=== PATIENT | male | born 1935 | race Caucasian/White ===

== ENCOUNTER → 2016-09-21 | Outpatient (CLI) | payer MEDICARE ==
--- NOTE | 2016-09-21 22:38 | XR ---
EXAMINATION TYPE: XR skull limited DATE OF EXAM: 09/21/2016 4:20 PM COMPARISON: NONE HISTORY: 81-year-old male unspecified foreign body, MRI clearance TECHNIQUE: 2 views FINDINGS: No calvarial abnormality is seen. No retained metallic density is seen. IMPRESSION: Skull without any retained metallic density. Clear for MRI.
== END ==
LOC: RADXRMAIN 16:09
PROVIDERS: ATTEND Family Medicine
DX: H44.70 Unspecified retained (old) intraocular foreign body, nonmagnetic (principal)
CPT/HCPCS: 70250

== ENCOUNTER → 2016-09-24 | Outpatient (CLI) | payer MEDICARE ==
--- NOTE | 2016-09-24 13:29 | MR ---
EXAMINATION TYPE: MR brain wo con DATE OF EXAM: 09/24/2016 1:21 PM. COMPARISON: Previous study dated 10/21/2014. HISTORY: Diplopia and syncope. Technique: Multiplanar, multiecho imaging of the brain was obtained without intravenous contrast. FINDINGS: Midline structures are unremarkable. There is a normal craniocervical junction. The sella turcica appears normal. Echoplanar diffusion imaging is normal. The orbits appear normal. There is no intraconal or extraconal mass lesion. There is no evidence of a CP angle mass lesion. There is diffuse confluent and punctate periventricular white matter disease. The pulmonary lesions m ay have increased very slightly from the previous study. There is no mass effect, midline shift or in tracranial blood. IMPRESSION: 1. NO ACUTE INTRACRANIAL ABNORMALITY. 2. SLIGHT PROGRESSION OF THE PATIENT'S WHITE MATTER DISEASE, LIKELY ON THE BASIS SMALL VESSEL DISEASE AND CHRONIC ISCHEMIC CHANGE. 3. NO ORBITAL ABNORMALITY OR ABNORMALITY OF THE SELLA TURCICA.
== END | disposition home or self-care (01) ==
LOC: RADMRIMAIN 12:43
PROVIDERS: ATTEND Family Medicine
DX: R90.82 White matter disease, unspecified (principal)
CPT/HCPCS: 70551

== ENCOUNTER → 2016-09-30 | Outpatient (CLI) | payer MEDICARE ==
--- NOTE | 2016-09-30 14:49 | US ---
EXAMINATION TYPE: US carotid duplex BILAT DATE OF EXAM: 09/30/2016 2:12 PM COMPARISON: Ultrasound CLINICAL HISTORY: R55 syncope. Syncope and collapse, history of left endarterectomy EXAM MEASUREMENTS: RIGHT: Peak Systolic Velocity (PSV) cm/sec ----- Right CCA: 99.8 ----- Right ICA: 95.6 ----- Right ECA: 95.6 ICA/CCA ratio: 1.0 RIGHT: End Diastole cm/sec ----- Right CCA: 9.6 ----- Right ICA: 11.5 ----- Right ECA: 6.1 LEFT: Peak Systolic Velocity (PSV) cm/sec ----- Left CCA: 119.4 ----- Left ICA: 97.9 ----- Left ECA: 97.3 ICA/CCA ratio: 0.8 LEFT: End Diastole cm/sec ----- Left CCA: 18.9 ----- Left ICA: 15.5 ----- Left ECA: 0.0 VERTEBRALS (direction of flow): Right Vertebral: Antegrade Left Vertebral: Retrograde Bilateral intimal thickening, plaque: bilateral bulb, greater on right, elevated velocity: left bulb, no significant stenosis IMPRESSION: 1. Atheromatous plaquing without significant flow-limiting stenosis. Criteria for Assigning % of Stenosis / Diameter reduction (Estimation based on the indirect measurements of the internal carotid artery velocities (ICA PSV). 1. Normal (no stenosis)=ICA PSV < 125 cm/s: ratio < 2.0: ICA EDV<40 cm/s. 2. Less than 50% stenosis=ICA PSV < 125 cm/s: ratio < 2.0: ICA EDV<40 cm/s. 3. 50 to 69% stenosis=ICA PSV of 125 to 230 cm/s: ration 2.0 ? 4.0: ICA EDV 40-100 cm/s. 4. Greater than 70% stenosis to near occlusion= ICA PSV > 230 cm/s: ratio > 4.0: ICA EDV > 100 cm/s. 5. Near occlusion= ICA PSV velocities may be low or undetectable: variable ratio and ICA EDV. 6. Total occlusion=unable to detect flow.
--- NOTE | 2016-10-20 09:18 | EEG ---
DATE OF SERVICE: 09/30/2016 INDICATIONS FOR EXAMINATION: Syncope. AGE: 81Y DESCRIPTION OF THE PROCEDURE: This EEG was performed using a 21-channel digital electroencephalograph, following the international 10 to 20 system. DESCRIPTION OF THE RECORDING: From the beginning of the tracing, and with the patient's eyes closed, the background rhythm was mostly consisting of 7 Hz theta frequency in the posterior occipital leads. No obvious asymmetry is seen. Photic stimulation was performed with no driving response seen. No pathological waves were elicited. Rare movement artifacts are seen. Hyperventilation was not performed. The patient remains awake throughout the tracing. No epileptiform discharges were seen. His EKG lead showed a regular rate and rhythm. INTERPRETATION: This awake EEG is abnormal due to the presence of generalized slowing of the background rhythm, mostly in the theta range. This is consistent with mild encephalopathy. No epileptiform discharges were seen. The absence of epileptiform discharges does not rule out the diagnosis of epilepsy, therefore, clinical correlation is recommended.
== END | disposition home or self-care (01) ==
LOC: NEUROMAIN 12:56
PROVIDERS: ATTEND Family Medicine
DX: R55 Syncope and collapse (principal); I65.23 Occlusion and stenosis of bilateral carotid arteries
CPT/HCPCS: 93880; 95816

== ENCOUNTER 2016-10-28 12:27 | Day surgery (SDC) | payer MEDICARE ==
[2016-10-27 08:55] VITALS: BMI 32.3
[~2016-10-28 12:27] MED LIST: ceFAZolin 1,000 MG in SODIUM CHLORIDE 0.9% IRRIGATIO 250 ML IRRIGATION ONE; ceFAZolin 2 GM in SODIUM CHLORIDE 0.9% 100 ML IVPB ONE
[2016-10-28] MEDS: SODIUM CHLORIDE 0.9% 1,000 ML IV SCH (13:04)
[2016-10-28 13:07] LABS: Basophils # (A) 0.1 k/uL (0-0.2); Basophils % (A) 1 %; CH 29.6; CHCM 33.5; Eosinophils # (A) 0.3 k/uL (0-0.7); Eosinophils % (A) 3 %; HCT 56.4 % (39.0-53.0); HDW 2.73; HGB 18.6 gm/dL (13.0-17.5); Luc # (Auto) 0.13; Luc % (Auto) 1; Lymphocytes # (A) 1.6 k/uL (1.0-4.8); Lymphocytes % (A) 16 %; MCH 29.4 pg (25.0-35.0); Mean Platelet Volume 7.8; Monocytes # (A) 0.6 k/uL (0-1.0); Monocytes % (A) 6 %; Neutrophils # (A) 7.5 k/uL (1.3-7.7); Neutrophils % (A) 74 %; RBC 6.33 m/uL (4.30-5.90); RDW 14.3 % (11.5-15.5); WBC 10.2 k/uL (3.8-10.6); WBC (Perox) 10.25
[2016-10-28] MEDS ORDERED: IOHEXOL 350 MG/ML 50ML BOTTLE INJ ONE (15:43)
[2016-10-28] MEDS ORDERED: MIDAZOLAM 2 MG/2 ML VIAL IV ONE (16:04)
[2016-10-28] MEDS ORDERED: MIDAZOLAM 2 MG/2 ML VIAL ONE (16:04)
[2016-10-28] MEDS ORDERED: LIDOCAINE 1% INJ 10MG/ML (20 ML MDV) SQ ONE ×3 (16:08→16:21)
--- NOTE | 2016-10-28 16:09 | CE ---
DATE OF SERVICE: TILT TABLE TEST Twelve-lead ECG shows sinus rhythm with a prolonged MT interval of 310 ms, right bundle branch block pattern, normal ST segments. Tilt table test was performed. Patient has a history of syncope upon standing. 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 Baseline blood pressure 115/60 mmHg. Baseline heart rate 86 beats per minute. Patient was tilted upright at an angle of 70 degrees per protocol. There was no significant change in his heart rate. He had elevations in blood pressure but no hypertension. He was laid supine at the end of the procedure. IMPRESSION: 1. No evidence for neurocardiogenic syncope. 2. No evidence for dysautonomia. 3. Elevations in blood pressure noted. SUGGEST: Proceed with dual-chamber pacemaker implantation for bradycardia secondary to significant AV node disease in the absence of any reversible causes.
[2016-10-28] MEDS ORDERED: fentaNYL (PF) 50 MCG/ML 2 ML AMP ONE (16:14)
[2016-10-28] MEDS ORDERED: fentaNYL (PF) 50 MCG/ML 2 ML AMP IV ONE (16:17)
[2016-10-28] MEDS ORDERED: ACETAMINOPHEN TAB 325 MG TAB PO PRN (17:01)
--- NOTE | 2016-10-28 17:05 | P.PCN ---
Preoperative Diagnosis: Patient underwent EP procedure under conscious sedation/moderate sedation, monitoring of the level of consciousness and physiologic parameters including but not limited to vital signs and oxygenation. Patient tolerated the procedure well without any acute complications. Start time: 16;04 Stop time: 16;52 IV Versed and IV fentanyl given EC dual-chamber pacemaker implant procedure note dictated separately Postoperative Diagnosis: Procedure(s) Performed: Implants: Indications for Procedure: Operative Findings: Description of Procedure:
--- NOTE | 2016-10-28 18:01 | PCN ---
DATE OF PROCEDURE: DUAL-CHAMBER PACEMAKER IMPLANT The patient has a history of recurrent syncope with 2:1 heart block and advanced AV block with bradycardia, without any reversible cause. Patient was brought to the EP lab in a fasting state. Written informed consent was obtained prior to the procedure. The left shoulder area was prepped and draped as per protocol. Lidocaine 1% was used for local anesthesia. Please see my conscious sedation report separately. The left pectoral area was prepped and draped as per protocol. Lidocaine 1% was used for local anesthesia. A 4 cm incision was made parallel to the deltopectoral groove about 1.5 cm medial to it. The incision was carried down to the level of the pectoralis muscle. A subfascial pocket was made. Hemostasis was assured. The left axillary vein was accessed at 2 separate points under fluoroscopy, and via appropriate-sized introducer sheaths, 2 leads were positioned in the right heart. The atrial lead was a Biotronik Solia s60, reference #[id number], serial #[id number]. This lead was positioned in the low RV septum. Pacing threshold was 0.8 v at 0.4 ms, pacing impedance of 702 ohms. Ten-volt test was negative. R waves 10.9 mV. The atrial lead was a Solia s45, serial #[id number]. This was screwed in the right atrial appendage. P waves were 4.1 mV, pacing impedance 526 ohms, pacing threshold 0.8 v at 0.4 ms. Ten-volt test was negative. Both leads were secured to the underlying pectoralis fascia using 2 non-absorbable sutures. Pocket was irrigated with antibiotic solution. The leads were connected to the generator (Aluna 8 DR-T Biotronik), serial #[id number]. Leads and the generator were then placed in the subfascial pocket and the wound was closed in 3 layers and dressed per protocol. RESULT: Successful dual-chamber pacemaker implantation for symptomatic bradycardia without any reversible cause, secondary to AV node disease with intermittent advanced AV block. PLAN: IV antibiotics. Chest x-ray and pacemaker interrogation tomorrow. Discharge tomorrow and follow up in the office in 5 days.
--- NOTE | 2016-10-28 18:05 | LTR ---
October 28, 2016 RE: Jones Brasher Dear Johnny, I had the pleasure of seeing Jones Brasher in electrophysiology followup. As you know, Jones has had AV node disease which was initially asymptomatic, but recently he has had episodes of syncope with evidence of advanced AV block without any reversible cause. Therefore a dual-chamber pacemaker was implanted successfully, and hopefully this prevents syncope. He also underwent a tilt stable test, which did not show any evidence for neurocardiogenic syncope. Thank you for entrusting me with the care of your patient. Warm regards. Sincerely, KASIA DALTON MD
[2016-10-28] MEDS ORDERED: NON-FORMULARY DRUG (Turmeric Root Extract [Turmeric] 500 MG) PO SCH (21:00)
[2016-10-28] MEDS ORDERED: LISINOPRIL 20 MG TAB PO SCH (21:00)
[2016-10-28] MEDS ORDERED: ATORVASTATIN 40 MG TAB PO SCH (21:00)
[2016-10-28] MEDS ORDERED: DONEPEZIL 10 MG TAB PO SCH (21:00)
[2016-10-28] MEDS: ceFAZolin 2 GM in SODIUM CHLORIDE 0.9% 100 ML IVPB SCH (21:54)
[2016-10-29] MEDS: ceFAZolin 2 GM in SODIUM CHLORIDE 0.9% 100 ML IVPB SCH ×3 (04:00→15:01)
[2016-10-29] MEDS: SODIUM CHLORIDE 0.9% 1,000 ML IV SCH (06:45)
[2016-10-29 07:56] LABS: Anion Gap 10 mmol/L; Blood Urea Nitrogen 21 mg/dL (9-20); Calcium 8.9 mg/dL (8.4-10.2); Carbon Dioxide 23 mmol/L (22-30); Chloride 108 mmol/L (98-107); Glucose 93 mg/dL (74-99); Non-African American GFR(MDRD) 59 (>60 ml/min/1.73 sqM); Potassium 4.3 mmol/L (3.5-5.1); Sodium 141 mmol/L (137-145)
[2016-10-29] MEDS ORDERED: amLODIPine 5 MG TAB PO SCH (09:00)
[2016-10-29] MEDS ORDERED: MEMANTINE 10 MG TAB PO SCH (09:00)
[2016-10-29] MEDS ORDERED: CLOPIDOGREL 75 MG TAB PO SCH (09:00)
--- NOTE | 2016-10-29 09:25 | XR ---
EXAMINATION TYPE: XR chest 2V DATE OF EXAM: 10/29/2016 6:27 AM COMPARISON: 10/19/2014 INDICATION: Lead placement check TECHNIQUE: Single frontal view of the chest is obtained. FINDINGS: The heart size is normal. The pulmonary vasculature is normal. The lungs are clear. Electronic device overlies left chest. No pneumothorax is evident. Lead placement appears normal IMPRESSION: 1. No acute pulmonary process. 2. No pneumothorax post pacemaker placement.
--- NOTE | 2016-10-29 09:35 | PN ---
Mr. Jones Brasher is doing well post procedure. His pacemaker site has healed well. He has minimal soakage and minimal swelling. Breath sounds are normal. Heart sounds are normal. Lungs are clear to auscultation. Abdomen is soft, nontender. Extremities are warm, he has chronic edema on the left leg, no edema on the right leg. This is a chronic finding and he will follow with his primary care physician regarding this. His blood pressure is 126/70 mmHg, heart rate in the 80s. Head and neck examination is normal. IMPRESSION: 1. Recurrent dizzy spells associated with severe bradycardia secondary to advanced AV node disease. 2. Hypertension. SUGGEST: Complete IV antibiotics, the pacemaker interrogation is within normal limits. He may go home after completion of antibiotics. Follow up with Dr. Devon Ashraf in 5 days in the [facility].
[2016-10-29] MEDS ORDERED: CHOLECALCIFEROL 1,000 UNIT TAB PO SCH (12:00)
[2016-10-29 17:44] VITALS: BP 160/82; PULSE 92; RESP 18; TEMP 97.6
== END 2016-10-29 16:45 | disposition home or self-care (01) ==
LOC: CATHEP 12:27 → 3OBS 16:52 → CATHEP 10-29 16:45
PROVIDERS: ATTEND Internal Medicine Clinical Cardiac Electrophysiology
DX: I44.1 Atrioventricular block, second degree (principal); R00.1 Bradycardia, unspecified; I45.10 Unspecified right bundle-branch block; I10 Essential (primary) hypertension; E78.2 Mixed hyperlipidemia; Z87.891 Personal history of nicotine dependence; Z79.02 Long term (current) use of antithrombotics/antiplatelets; Z79.899 Other long term (current) drug therapy
CPT/HCPCS: 33208; 93660; 80048; 85025; 71020; 99152; 99153 ×2; C1785; C1898; J2250; J0690 ×3; J2001; J3010; Q9967

== ENCOUNTER → 2017-10-17 | Outpatient (CLI) | payer MEDICARE ==
--- NOTE | 2017-10-17 11:50 | US ---
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 EXAM MEASUREMENTS: RIGHT: Peak Systolic Velocity (PSV) cm/sec ----- Right CCA: 125.5 ----- Right ICA: 97.9 ----- Right ECA: 103.1 ICA/CCA ratio: 0.8 RIGHT: End Diastole cm/sec ----- Right CCA: 12.3 ----- Right ICA: 15.0 ----- Right ECA: 0.0 LEFT: Peak Systolic Velocity (PSV) cm/sec ----- Left CCA: 176.7 ----- Left ICA: 95.3 ----- Left ECA: 97.9 ICA/CCA ratio: 0.3 LEFT: End Diastole cm/sec ----- Left CCA: 30.8 ----- Left ICA: 25.4 ----- Left ECA: 0.0 VERTEBRALS (direction of flow): Right Vertebral: Antegrade Left Vertebral: Antegrade Rhythm: Normal There is persistent moderate plaque at right carotid bulb and slightly less prominent moderate plaque at left carotid bulb. Velocity measurements and ratios remain within normal limits in visualized por tion of both internal carotid arteries. Increased peak systolic velocity is redemonstrated. IMPRESSION: Moderate atherotic change bilaterally without hemodynamically significant stenosis seen i n either internal carotid artery.
== END | disposition home or self-care (01) ==
LOC: RADUSWWP 10:56
PROVIDERS: ATTEND Family Medicine
DX: I77.89 Other specified disorders of arteries and arterioles (principal)
CPT/HCPCS: 93880

== ENCOUNTER → 2020-10-21 | Outpatient (CLI) | payer MEDICARE ==
[2020-10-21 23:19] LABS: HGB 18.3 g/dL (13.0-17.0); MCHC 31.6 g/dL (32.0-37.0); MCV 91.9 fL (80.0-97.0); Mean Platelet Volume 11.3 fL (9.5-12.2); Platelet Count 191 X 10*3/uL (140-440); RBC 6.31 X 10*6/uL (4.40-5.60); RDW 13.9 % (11.5-14.5); WBC 10.33 X 10*3/uL (4.50-10.00)
[2020-10-22 04:18] LABS: African American GFR (CKD) 52.4 (60.0-200.0); Albumin 4.6 g/dL (3.80-4.90); Albumin/Globulin Ratio 2.19 (1.60-3.17); Anion Gap 10.9 mmol/L (4.00-12.00); BUN/Creat Ratio 12.86 Ratio (12.00-20.00); Calcium 9.3 mg/dL (8.7-10.3); Carbon Dioxide 26.1 mmol/L (21.6-31.8); Globulin 2.1 g/dL (1.6-3.3); Non-African American GFR(CKD) 45.2 (60.0-200.0); Potassium 4.3 mmol/L (3.5-5.5); Total Bilirubin 0.5 mg/dL (0.3-1.2); Total Protein 6.7 g/dL (6.2-8.2)
== END | disposition home or self-care (01) ==
LOC: LABWHC1 16:01
PROVIDERS: ATTEND Nurse Practitioner Adult Health
DX: I48.0 Paroxysmal atrial fibrillation (principal)
CPT/HCPCS: 36415; 80053; 84443; 85027

== ENCOUNTER 2021-03-06 06:32 | Observation (INO) | payer MEDICARE ==
[2021-03-06] MEDS ORDERED: SODIUM CHLORIDE 0.9% 1,000 ML IV ONE (06:53)
[2021-03-06 06:59] LABS: Glucose,Whole Blood 108 mg/dL (75-99)
--- NOTE | 2021-03-06 07:18 | ED ---
General Adult HPI - General Chief complaint: Fall Stated complaint: Fall, head pain, confusion Time Seen by Provider: 03/06/21 07:07 Source: patient, family Mode of arrival: ambulatory Limitations: no limitations - History of Present Illness Initial comments: Dictation was produced using [employer] dictation software. please excuse any grammatical, word or spelling errors. Chief Complaint: 85-year-old male to the emergency department for alleged fall History of Present Illness: To 85-year-old male who lives emergency [facility] in the independent portion of the facility. History of present illness was obtained by daughter who is at the bedside. According to daughter patient had an unwitnessed fall or unwitnessed event of head injury. Patient went to the staff at the [facility] facility told him that he fell. Patient has history of dementia. Daughter reports that patient's history had changed 5 times which is typical of patient to change the story. Daughter at bedside reports that at the bedside he is appearing baseline. Supposedly [facility] had lost electricity and these types of events usually lead to patient having a dementia exacerbation. Patient has no complaints at this time. Patient complained at some point to daughter and [facility] staff that he has pain on the right side of his head. Daughter notices a little small bump over his right forehead area. Some clear patient was found on the ground. To daughter's knowledge patient had an unwitnessed fall. Patient has no complaints at the bedside. The ROS documented in this emergency department record has been reviewed and confirmed by me. Those systems with pertinent positive or negative responses have been documented in the HPI. All other systems are other negative and/or noncontributory. PHYSICAL EXAM: General Impression: Alert and oriented x3, not in acute distress, smiling and joking HEENT: Small hematoma over the right forehead measuring approximately 2 x 2 centimeters, extra-ocular movements intact, pupils equal and reactive to light bilaterally, mucous membranes moist. Cardiovascular: Heart regular rate and rhythm Chest: Able to complete full sentences, no retractions, no tachypnea Abdomen: abdomen soft, non-tender, non-distended, no organomegaly Musculoskeletal: Pulses present and equal in all extremities, no peripheral edema Motor: no focal deficits noted Neurological: CN II-XII grossly intact, no focal motor or sensory deficits noted Skin: Intact with no visualized rashes Psych: Normal affect and mood ED course: 85-year-old male with past medical history of dementia presents after unwitnessed fall. Vital signs upon arrival are within acceptable limits. Daughter at bedside reports that patient appears to be baseline currently. He has history of dementia. He is well appearing at the bedside. Physical examination is benign. No evidence of serious right brain injury on physical exam. Computed tomography scan of the head and C-spine shows no acute traumatic injuries. EKG interpretation: Ventricular rate 75, paced rhythm, Interval 150, QRS 170, QTc 515. No DC prolongation, no ST or T-wave changes noted. Patient reevaluated at the bedside. Patient's well-appearing. He is ambulatory without any complications. Laboratory evaluation obtained. Mild leukocytosis of 11.4 likely stress. Coag panel is negative. Metabolic panel shows slight elevation of renal markers with a creatinine 1.28 which appears to be around patient's baseline. Troponin is elevated 0.076. Old laboratory evaluation was obtained did not show any elevated troponins. Patient's well-appearing at bedside. Unclear whether patient had cardiac cause for falling. Patient will be admitted for monitoring and cardiology consultation for elevated troponin. - Related Data Home Medications Medication Instructions Recorded Confirmed Donepezil [Aricept] 10 mg PO HS 10/19/14 10/28/16 Memantine [Namenda] 10 mg PO DAILY 10/19/14 10/28/16 Atorvastatin [Lipitor] 40 mg PO HS 10/27/16 10/28/16 Cholecalciferol [Vitamin D3 (25 2,000 unit PO DAILY 10/27/16 10/28/16 Mcg = 1000 Iu)] Turmeric Root Extract [Turmeric] 500 mg PO BID 10/27/16 10/28/16 amLODIPine [Norvasc] 5 mg PO DAILY 10/27/16 10/28/16 lisinopriL [Zestril] 20 mg PO HS 10/27/16 10/28/16 Previous Rx's Medication Instructions Recorded Clopidogrel [Plavix] 75 mg PO DAILY #30 tab 10/22/14 Allergies Allergy/AdvReac Type Severity Reaction Status Date / Time No Known Allergies Allergy Verified 10/28/16 12:46 Review of Systems ROS Statement: Those systems with pertinent positive or pertinent negative responses have been documented in the HPI. ROS Other: All systems not noted in ROS Statement are negative. Past Medical History Past Medical History: CVA/TIA, Dementia, Deep Vein Thrombosis (DVT), Hyperlip idemia, Hypertension, Memory Impairment, Vascular Disorder Additional Past Medical History / Comment(s): DVT >30 yrs. 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 per daughter Past Psychological History: No Psychological Hx Reported Smoking Status: Former smoker Past Alcohol Use History: None Reported Past Drug Use History: None Reported - Past Family History Sister(s) Family Medical History: Asthma General Exam Limitations: no limitations Course Vital Signs 03/06/21 03/06/21 06:35 08:36 Temperature 98.1 F 98 F Pulse Rate 60 67 Respiratory 18 16 Rate Blood Pressure 94/65 151/75 O2 Sat by Pulse 93 L 95 Oximetry Medical Decision Making - Lab Data Result diagrams: 03/06/21 07:24 03/06/21 07:24 Lab Results 03/06/21 03/06/21 03/06/21 Range/Units 06:58 07:24 07:24 WBC 11.4 H (3.8-10.6) k/uL RBC 5.89 (4.30-5.90) m/uL Hgb 17.5 (13.0-17.5) gm/dL Hct 52.3 (39.0-53.0) % MCV 88.8 (80.0-100.0) fL MCH 29.8 (25.0-35.0) pg MCHC 33.5 (31.0-37.0) g/dL RDW 14.4 (11.5-15.5) % Plt Count 173 (150-450) k/uL MPV 8.6 Neutrophils % 77 % Lymphocytes % 11 % Monocytes % 9 % Eosinophils % 2 % Basophils % 1 % Neutrophils # 8.8 H (1.3-7.7) k/uL Lymphocytes # 1.3 (1.0-4.8) k/uL Monocytes # 1.0 (0-1.0) k/uL Eosinophils # 0.2 (0-0.7) k/uL Basophils # 0.1 (0-0.2) k/uL PT 14.6 H (9.0-12.0) sec INR 1.4 H (<1.2) APTT 26.0 (22.0-30.0) sec Sodium (137-145) mmol/L Potassium (3.5-5.1) mmol/L Chloride (98-107) mmol/L Carbon Dioxide (22-30) mmol/L Anion Gap mmol/L BUN (9-20) mg/dL Creatinine (0.66-1.25) mg/dL Est GFR (CKD-EPI)AfAm (>60 ml/min/1.73 sqM) Est GFR (CKD-EPI)NonAf (>60 ml/min/1.73 sqM) Glucose (74-99) mg/dL POC Glucose (mg/dL) 108 H (75-99) mg/dL POC Glu Assistant Professor Of Radiology ID Arrieta, Rehan Calcium (8.4-10.2) mg/dL Total Bilirubin (0.2-1.3) mg/dL AST (17-59) U/L ALT (4-49) U/L Alkaline Phosphatase (38-126) U/L Creatine Kinase (55-170) U/L Troponin I (0.000-0.034) ng/mL Total Protein (6.3-8.2) g/dL Albumin (3.5-5.0) g/dL 03/06/21 03/06/21 Range/Units 07:24 07:24 WBC (3.8-10.6) k/uL RBC (4.30-5.90) m/uL Hgb (13.0-17.5) gm/dL Hct (39.0-53.0) % MCV (80.0-100.0) fL MCH (25.0-35.0) pg MCHC (31.0-37.0) g/dL RDW (11.5-15.5) % Plt Count (150-450) k/uL MPV Neutrophils % % Lymphocytes % % Monocytes % % Eosinophils % % Basophils % % Neutrophils # (1.3-7.7) k/uL Lymphocytes # (1.0-4.8) k/uL Monocytes # (0-1.0) k/uL Eosinophils # (0-0.7) k/uL Basophils # (0-0.2) k/uL PT (9.0-12.0) sec INR (<1.2) APTT (22.0-30.0) sec Sodium 141 (137-145) mmol/L Potassium 4.1 (3.5-5.1) mmol/L Chloride 110 H (98-107) mmol/L Carbon Dioxide 22 (22-30) mmol/L Anion Gap 9 mmol/L BUN 16 (9-20) mg/dL Creatinine 1.28 H (0.66-1.25) mg/dL Est GFR (CKD-EPI)AfAm 58 (>60 ml/min/1.73 sqM) Est GFR (CKD-EPI)NonAf 50 (>60 ml/min/1.73 sqM) Glucose 110 H (74-99) mg/dL POC Glucose (mg/dL) (75-99) mg/dL POC Glu Assistant Professor Of Radiology ID Calcium 9.1 (8.4-10.2) mg/dL Total Bilirubin 0.8 (0.2-1.3) mg/dL AST 23 (17-59) U/L ALT 20 (4-49) U/L Alkaline Phosphatase 99 (38-126) U/L Creatine Kinase 80 (55-170) U/L Troponin I 0.076 H* (0.000-0.034) ng/mL Total Protein 6.2 L (6.3-8.2) g/dL Albumin 3.7 (3.5-5.0) g/dL Disposition Clinical Impression: Fall, Elevated troponin Disposition: ADMITTED IP TO THIS HOSP Condition: Fair Referrals: Johnny Osei MD [Primary Care Provider] - 1-2 days
--- NOTE | 2021-03-06 07:20 | CT ---
EXAMINATION TYPE: CT brain cheryl sanchez DATE OF EXAM: 03/06/2021 COMPARISON: 10/19/2014 HISTORY: Fall on thinners Unenhanced CT of the brain was performed. The ventricles, basal cisterns and sulci overlying the cerebral convexities demonstrate mild enlargem ent. There is no evidence for intracranial hemorrhage or sulcal effacement. There is decreased attenuatio n about the periventricular white matter and deep white matter of both cerebral hemispheres, compatib le with chronic small vessel ischemia. No mass effects are seen. If symptoms persist consider MRI. Osseous calvarium is intact. IMPRESSION: 1. Age related atrophic and chronic small vessel ischemic change without acute intracranial process seen at this time. CT Cervical Spine: Unenhanced CT of the cervical spine was performed with bone and soft tissue window settings submitted . Coronal and sagittal reconstruction is obtained. There is normal alignment and prevertebral soft tissues. No evidence for acute cervical fracture . Scattered degenerative disc disease and spondylosis. Biapical scarring. IMPRESSION: 1. No evidence for acute fracture or subluxation of the cervical spine.
[2021-03-06 07:40] LABS: Basophils # (A) 0.1 k/uL (0-0.2); Basophils % (A) 1 %; Eosinophils # (A) 0.2 k/uL (0-0.7); Eosinophils % (A) 2 %; HCT 52.3 % (39.0-53.0); HGB 17.5 gm/dL (13.0-17.5); Lymphocytes # (A) 1.3 k/uL (1.0-4.8); Lymphocytes % (A) 11 %; MCH 29.8 pg (25.0-35.0); MCHC 33.5 g/dL (31.0-37.0); MCV 88.8 fL (80.0-100.0); Mean Platelet Volume 8.6; Monocytes % (A) 9 %; Neutrophils # (A) 8.8 k/uL (1.3-7.7); Neutrophils % (A) 77 %; Platelet Count 173 k/uL (150-450); RBC 5.89 m/uL (4.30-5.90); RDW 14.4 % (11.5-15.5); WBC 11.4 k/uL (3.8-10.6)
[2021-03-06 07:49] LABS: INR 1.4 (<1.2); Prothrombin Time 14.6 sec (9.0-12.0)
[2021-03-06 07:53] LABS: Albumin 3.7 g/dL (3.5-5.0); Calcium 9.1 mg/dL (8.4-10.2); Potassium 4.1 mmol/L (3.5-5.1); Total Bilirubin 0.8 mg/dL (0.2-1.3); Total Protein 6.2 g/dL (6.3-8.2)
[2021-03-06] MEDS ORDERED: ASPIRIN 81 MG PO STA (09:09)
[2021-03-06] MEDS ORDERED: NITROGLYCERIN SL TABS 0.4 MG TAB SUBLINGUAL PRN (09:09)
[2021-03-06] MEDS ORDERED: APIXABAN 2.5 MG TABLET PO SCH (11:00)
[2021-03-06] MEDS ORDERED: FUROSEMIDE 10 MG/ML 4 ML VIAL IV STA (11:39)
--- NOTE | 2021-03-06 11:39 | P.HPIM ---
History of Present Illness H&P Date: 03/06/21 This is a 85-year-old male with complex past medical history noted below significant for advanced dementia who presented to the emergency room with worsening confusion from a local assisted living facility. Patient is awake and alert and only oriented to himself. He is unable to provide any history. History was obtained by his daughter at bedside. She told me that he had a questionable fall at the assisted living facility that was unwitnessed. His daughter assumed the patient's fell secondary to a small bump on his forehead. She is not sure if he hit his head otherwise. Patient denies any headache or vision change. He denies dizziness. He has a history of symptomatic bradycardia status post pacemaker implantation. He was evaluated in the ER computed tomography scan of the head and cervical spine showed no acute findings. He was noted to have elevated troponin but patient denies any chest pain. He was admitted to the hospital for further management. Review of Systems Review of system: 14 points review of systems were obtained and were negative except to what were mentioned in the HPI. Past Medical History Past Medical History: CVA/TIA, Dementia, Deep Vein Thrombosis (DVT), Hyperlipidemia, Hypertension, Memory Impairment, Vascular Disorder Additional Past Medical History / Comment(s): DVT >30 yrs. 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 per daughter Past Psychological History: No Psychological Hx Reported Smoking Status: Former smoker Past Alcohol Use History: None Reported Additional Past Alcohol Use History / Comment(s): quit smoking 20 yrs. ago, 1ppd for 30 yrs. Past Drug Use History: None Reported - Past Family History Sister(s) Family Medical History: Asthma Medications and Allergies Home Medications Medication Instructions Recorded Confirmed Type Donepezil [Aricept] 10 mg PO DAILY@1100 10/19/14 03/06/21 History Memantine [Namenda] 10 mg PO DAILY@1100 10/19/14 03/06/21 History Atorvastatin [Lipitor] 40 mg PO DAILY@1100 10/27/16 03/06/21 History Apixaban [Eliquis] 2.5 mg PO BID@1100,2300 03/06/21 03/06/21 History Cholecalciferol [Vitamin D3 (25 50 mcg PO DAILY@109903/06/21 03/06/21 History Mcg = 1000 Iu)] Metoprolol Succinate (ER) [Toprol 25 mg PO DAILY@109903/06/21 03/06/21 History Xl] lisinopriL [Zestril] 20 mg PO DAILY@109903/06/21 03/06/21 History Allergies Allergy/AdvReac Type Severity Reaction Status Date / Time No Known Allergies Allergy Verified 03/06/21 09:13 Physical Exam Vitals: Vital Signs Temp Pulse Resp BP Pulse Ox 03/06/21 09:41 81 20 157/86 96 03/06/21 08:36 98 F 67 16 151/75 95 03/06/21 06:35 98.1 F 60 18 94/65 93 L Intake and Output 03/05/21 03/06/21 03/06/21 22:59 06:59 14:59 Other: Weight 94.347 kg 94.347 kg General: The patient is awake and alert, in no distress Eye: there is normal conjunctiva bilaterally. Neck: The neck is supple, there is no JVD. Cardiovascular: Normal S1-S2, no S3-S4, no murmurs. Respiratory: Lungs clear to auscultation bilaterally Gastrointestinal: Abdomen is soft, nontender Musculoskeletal: There is +2-3 pitting edema up to the midshin Neurological:. Speech is normal. Skin: Skin is warm and dry Results CBC & Chem 7: 03/06/21 07:24 03/06/21 07:24 Labs: Abnormal Lab Results - Last 24 Hours (Table) 03/06/21 03/06/21 03/06/21 Range/Units 06:58 07:24 07:24 WBC 11.4 H (3.8-10.6) k/uL Neutrophils # 8.8 H (1.3-7.7) k/uL PT 14.6 H (9.0-12.0) sec INR 1.4 H (<1.2) Chloride (98-107) mmol/L Creatinine (0.66-1.25) mg/dL Glucose (74-99) mg/dL POC Glucose (mg/dL) 108 H (75-99) mg/dL Troponin I (0.000-0.034) ng/mL Total Protein (6.3-8.2) g/dL 03/06/21 03/06/21 Range/Units 07:24 07:24 WBC (3.8-10.6) k/uL Neutrophils # (1.3-7.7) k/uL PT (9.0-12.0) sec INR (<1.2) Chloride 110 H (98-107) mmol/L Creatinine 1.28 H (0.66-1.25) mg/dL Glucose 110 H (74-99) mg/dL POC Glucose (mg/dL) (75-99) mg/dL Troponin I 0.076 H* (0.000-0.034) ng/mL Total Protein 6.2 L (6.3-8.2) g/dL Thrombosis Risk Factor Assmnt - Choose All That Apply Each Risk Factor Represents 3 Points: Age 75 years or older, History of DVT/PE Thrombosis Risk Factor Assessment Total Risk Factor Score: 6 Thrombosis Risk Factor Assessment Level: High Risk Assessment and Plan Assessment: 1. Troponin elevation: Probably secondary to non-thrombotic troponin leak. Continue telemetry monitoring and trend troponin. Echocardiogram ordered. Cardiology consulted 2. Suspected CHF exacerbation with evidence of bilateral lower extremity edema. I would check BNP and x-ray. One-time dose of IV Lasix now. Continue to monitor closely. 3. Chronic medical problems: Underlying dementia, probably vascular. History of symptomatic bradycardia status post pacemaker implantation, hypertension, chronic anticoagulation with Eliquis for unclear reason to me Today, I reviewed his medication list and lab work results. Computed tomography scan of the head and cervical spine with no acute findings. Awaiting cardiolo gy evaluation.
[2021-03-06] MEDS: MEMANTINE 10 MG TAB PO SCH (12:04)
[2021-03-06] MEDS: CHOLECALCIFEROL 25 MCG (1000 IU) TABLET PO SCH (12:04)
[2021-03-06] MEDS: ATORVASTATIN 40 MG TAB PO SCH (12:04)
[2021-03-06] MEDS: DONEPEZIL 10 MG TAB PO SCH (12:04)
[2021-03-06] MEDS: METOPROLOL SUCCINATE (ER) 25 MG TAB.ER.24H PO SCH (12:04)
[2021-03-06] MEDS ORDERED: HEPARIN SODIUM 1,000 UN/ML (10ML VL) IV PRN (12:05)
[2021-03-06] MEDS: lisinopriL 20 MG TAB PO SCH (12:05)
[2021-03-06] MEDS ORDERED: HEPARIN SODIUM 1,000 UN/ML (10ML VL) IV ONE (12:05)
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
[2021-03-06] MEDS: HEPARIN SOD,PORK IN 0.45% NACL 25,000 UNIT in 0.45% NACL 1 250ML.BAG IV SCH (13:05)
--- NOTE | 2021-03-06 17:05 | XR ---
EXAMINATION TYPE: XR chest 1V DATE OF EXAM: 03/06/2021 CLINICAL HISTORY: CHF. TECHNIQUE: Single AP portable frontal semiupright view of the chest is obtained. COMPARISON: Chest x-ray October 29, 2016 FINDINGS: Low lung volumes and chronic parenchymal changes redemonstrated. There is no new suspiciou s focal air space opacity, pleural effusion, or pneumothorax seen. The cardiac silhouette size is st able and upper limits of normal with dual lead pacemaker redemonstrated. The osseous structures rem ain intact. IMPRESSION: Chronic changes without acute pulmonary process.
--- NOTE | 2021-03-06 18:29 | ECHOF ---
Referral Reason:elev trop MEASUREMENTS -------- HEIGHT: 175.3 cm WEIGHT: 94.3 kg BP: 157/86 RVIDd: 2.7 cm (< 3.3) IVSd: 1.2 cm (0.6 - 1.1) LVIDd: 5.2 cm (3.9 - 5.3) LVPWd: 1.2 cm (0.6 - 1.1) IVSs: 1.5 cm LVIDs: 4.1 cm LVPWs: 1.6 cm LA Diam: 3.2 cm (2.7 - 3.8) Ao Diam: 3.1 cm (2.0 - 3.7) AV Cusp: 1.9 cm (1.5 - 2.6) MV EXCURSION: 12.148 mm (> 18.000) MV EF SLOPE: 48 mm/s (70 - 150) EPSS: 1.4 cm MV E Samuel: 0.73 m/s MV DecT: 142 ms MV A Samuel: 0.85 m/s MV E/A Ratio: 0.86 AV maxP.31 mmHg AV meanP.78 mmHg FINDINGS -------- Sinus rhythm. This was a technically difficult study with suboptimal views. The left ventricular size is normal. There is borderline concentric left ventricular hypertrophy. Overall left ventricular systolic function is mildly impaired with, an EF between 45 - 50 %. Apica l anterior LV wall motion is hypokinetic. Apical septum LV wall motion is hypokinetic. The right ventricle is normal in size. The left atrium is normal in size. The right atrial size is normal. There is mild aortic valve sclerosis. There is mild aortic regurgitation. The mitral valve leaflets are mildly thickened. Mild mitral regurgitation is present. The tricuspid valve appears structurally normal. Mild tricuspid regurgitation present. Trace/mild (physiologic) pulmonic regurgitation. The aortic root size is normal. IVC Not well visulized. There is no pericardial effusion. CONCLUSIONS -------- 1. This was a technically difficult study with suboptimal views. 2. There is borderline concentric left ventricular hypertrophy. 3. Overall left ventricular systolic function is mildly impaired with, an EF between 45 - 50 %. 4. Apical anterior LV wall motion is hypokinetic. 5. Apical septum LV wall motion is hypokinetic. 6. The left atrium is normal in size. 7. There is mild aortic valve sclerosis. 8. There is mild aortic regurgitation. 9. Mild mitral regurgitation is present. 10. Mild tricuspid regurgitation present. 11. Trace/mild (physiologic) pulmonic regurgitation. 12. There is no pericardial effusion. VB NET DEVELOPER: Gwendolyn Theodore RDCS
[2021-03-06] MEDS ORDERED: QUEtiapine 25 MG TAB PO STA (20:51)
[2021-03-07 05:46] LABS: Basophils # (A) 0.1 k/uL (0-0.2); Basophils % (A) 1 %; Eosinophils # (A) 0.2 k/uL (0-0.7); Eosinophils % (A) 2 %; HCT 52.2 % (39.0-53.0); Lymphocytes # (A) 2.5 k/uL (1.0-4.8); Lymphocytes % (A) 23 %; MCH 30.3 pg (25.0-35.0); MCHC 34.4 g/dL (31.0-37.0); MCV 88.3 fL (80.0-100.0); Monocytes # (A) 0.9 k/uL (0-1.0); Monocytes % (A) 8 %; Neutrophils # (A) 6.8 k/uL (1.3-7.7); Neutrophils % (A) 64 %; Platelet Count 156 k/uL (150-450); RBC 5.92 m/uL (4.30-5.90); RDW 14.4 % (11.5-15.5); WBC 10.6 k/uL (3.8-10.6)
[2021-03-07 06:16] LABS: INR 1.2 (<1.2); Partial Thromboplastin Time 57.3 sec (22.0-30.0); Prothrombin Time 12.1 sec (9.0-12.0)
[2021-03-07 08:59] LABS: Calcium 9.1 mg/dL (8.4-10.2)
[2021-03-07] MEDS ORDERED: ASPIRIN 325 MG TAB PO SCH (09:00)
[2021-03-07 09:06] LABS: Potassium 4.4 mmol/L (3.5-5.1)
[2021-03-07 09:07] LABS: Magnesium 2.2 mg/dL (1.6-2.3)
[2021-03-07] MEDS: ASPIRIN 81 MG PO SCH (09:16)
[2021-03-07] MEDS: FUROSEMIDE 10 MG/ML 4 ML VIAL IV SCH ×2 (09:16→19:56)
[2021-03-07] MEDS: HEPARIN SOD,PORK IN 0.45% NACL 25,000 UNIT in 0.45% NACL 1 250ML.BAG IV SCH (09:19)
[2021-03-07] MEDS: DONEPEZIL 10 MG TAB PO SCH (12:32)
[2021-03-07] MEDS: CHOLECALCIFEROL 25 MCG (1000 IU) TABLET PO SCH (12:32)
[2021-03-07] MEDS: APIXABAN 2.5 MG TABLET PO SCH ×2 (12:33→19:56)
[2021-03-07] MEDS: lisinopriL 20 MG TAB PO SCH (12:33)
[2021-03-07] MEDS: ATORVASTATIN 40 MG TAB PO SCH (12:33)
[2021-03-07] MEDS: METOPROLOL SUCCINATE (ER) 25 MG TAB.ER.24H PO SCH (12:33)
[2021-03-07] MEDS: MEMANTINE 10 MG TAB PO SCH (12:33)
--- NOTE | 2021-03-07 13:50 | P.PN ---
Subjective Patient is doing fairly well this morning. Apparently he was very agitated last night with symptoms of sundowning. He was also having evidence of urinary retention with bladder scan showing greater than 400 mL of urine on multiple occasions by nursing staff did not notify physician communications project manager. This morning, postvoid residual showed 150 mL of urine. Daughter at bedside. Objective - Vital Signs Vital signs: Vital Signs Temp 97.8 F 03/07/21 09:08 Pulse 70 03/07/21 11:50 Resp 18 03/07/21 11:50 BP 146/67 03/07/21 11:50 Pulse Ox 92 L 03/07/21 11:50 Intake & Output 03/06/21 03/07/21 03/07/21 18:59 06:59 18:59 Intake Total 480 442.333 Output Total 1691 300 600 Balance -1211 -300 -157.667 Weight 94.347 kg 90.3 kg Intake: Intake, IV Titration 202.333 Amount Heparin Sod,Pork in 0.45% 202.333 NaCl 25,000 unit In 0.45 % NaCl 1 250ml.bag @ 10. 599 UNITS/KG/HR 10 mls/hr IV .Q24H [facility] Rx#: [id number] Oral 480 240 Output: Urine 1200 300 600 Post Void Residual 491 Other: Voiding Method Toilet Toilet Toilet # Voids 1 - Exam General: The patient is awake and alert, in no distress Eye: there is normal conjunctiva bilaterally. Neck: The neck is supple, there is no JVD. Cardiovascular: Normal S1-S2, no S3-S4, no murmurs. Respiratory: Lungs clear to auscultation bilaterally Gastrointestinal: Abdomen is soft, nontender Musculoskeletal: There is +1-2 pitting edema worse on the left Neurological:. Speech is normal. Skin: Skin is warm and dry - Labs CBC & Chem 7: 03/07/21 05:25 03/07/21 05:25 Labs: Abnormal Lab Results - Last 24 Hours (Table) 03/06/21 03/06/21 03/07/21 Range/Units 13:00 19:53 05:25 RBC 5.92 H (4.30-5.90) m/uL Hgb 18.0 H (13.0-17.5) gm/dL PT (9.0-12.0) sec INR (<1.2) APTT 56.1 H (22.0-30.0) sec Chloride (98-107) mmol/L Troponin I 0.307 H* (0.000-0.034) ng/mL 03/07/21 03/07/21 03/07/21 Range/Units 05:25 05:25 11:49 RBC (4.30-5.90) m/uL Hgb (13.0-17.5) gm/dL PT 12.1 H (9.0-12.0) sec INR 1.2 H (<1.2) APTT 57.3 H 51.3 H (22.0-30.0) sec Chloride 108 H (98-107) mmol/L Troponin I (0.000-0.034) ng/mL Assessment and Plan Assessment: 1. Troponin elevation: Probably secondary to non-thrombotic troponin leak/underlying CHF. Troponin trend stabilized. Continue telemetry monitoring. Cardiology consulted 2. Mild acute systolic CHF exacerbation with evidence of bilateral lower extremity edema. Started on IV Lasix. We will continue for another 24 hours. Chest x-ray and BNP not very impressive. Continue to monitor closely. 3. Urinary retention, continue bladder scan monitoring. Most orders were greater than 300 mL of urine would consider Willard catheter. Will discuss further with daughter 4. Chronic medical problems: Underlying dementia, probably vascular. History of symptomatic bradycardia status post pacemaker implantation, hypertension, chronic anticoagulation with Eliquis for unclear reason to me Today, I reviewed his medication list and lab work results. Computed tomography scan of the head and cervical spine in the ER with no acute findings. Appreciate cardiology recommendation
--- NOTE | 2021-03-07 13:51 | P.PN ---
Progress Note - Text Progress Note Date: 03/07/21 Today, I had a prolonged discussion with the patient out of regarding goals of care. We discussed his advanced dementia along other comorbidities. His daughter said that she is contemplating comfort care and hospice at some point that she is not ready for that at this time. She has few questions are answered. >16 minutes
[2021-03-07 14:58] LABS: Chol/HDL Ratio 3.08; LDL Cholesterol,Calculated 68.2 mg/dL (0.0-131.0); VLDL Calculation 12.8 mg/dL (5.00-40.00)
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
[2021-03-07] MEDS: CLOPIDOGREL 75 MG TAB PO SCH (17:14)
[2021-03-07] MEDS ORDERED: APIXABAN 5 MG TAB PO SCH (21:00)
[2021-03-08] MEDS: APIXABAN 2.5 MG TABLET PO SCH ×2 (08:54→21:36)
[2021-03-08] MEDS: FUROSEMIDE 10 MG/ML 4 ML VIAL IV SCH (08:54)
[2021-03-08] MEDS: CLOPIDOGREL 75 MG TAB PO SCH (08:54)
[2021-03-08] MEDS: ASPIRIN 81 MG PO SCH (08:54)
[2021-03-08] MEDS: METOPROLOL SUCCINATE (ER) 25 MG TAB.ER.24H PO SCH (12:29)
[2021-03-08] MEDS: MEMANTINE 10 MG TAB PO SCH (12:29)
[2021-03-08] MEDS: ATORVASTATIN 40 MG TAB PO SCH (12:29)
[2021-03-08] MEDS: lisinopriL 20 MG TAB PO SCH (12:29)
[2021-03-08] MEDS: CHOLECALCIFEROL 25 MCG (1000 IU) TABLET PO SCH (12:29)
[2021-03-08] MEDS: DONEPEZIL 10 MG TAB PO SCH (12:30)
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
--- NOTE | 2021-03-08 16:48 | P.PN ---
Subjective No acute events reported by nursing staff Objective - Vital Signs Vital signs: Vital Signs Temp 97.7 F 03/08/21 16:20 Pulse 59 L 03/08/21 16:20 Resp 16 03/08/21 16:20 BP 100/60 03/08/21 16:20 Pulse Ox 92 L 03/08/21 16:20 Intake & Output 03/07/21 03/08/21 03/08/21 18:59 06:59 18:59 Intake Total 922.333 480 Output Total 950 343019 656 Balance -27.667 -566224 -176 Weight 90.3 kg 90.5 kg Intake: Intake, IV Titration 202.333 Amount Heparin Sod,Pork in 0.45% 202.333 NaCl 25,000 unit In 0.45 % NaCl 1 250ml.bag @ 10. 599 UNITS/KG/HR 10 mls/hr IV .Q24H [facility] Rx#: [id number] Oral 720 480 Output: Urine 950 900 600 Post Void Residual [id number] Other: Voiding Method Toilet Toilet Toilet # Voids 1 - Exam General: The patient is awake and alert, in no distress Eye: there is normal conjunctiva bilaterally. Neck: The neck is supple, there is no JVD. Cardiovascular: Normal S1-S2, no S3-S4, no murmurs. Respiratory: Lungs clear to auscultation bilaterally Gastrointestinal: Abdomen is soft, nontender Musculoskeletal: There is +1-2 pitting edema worse on the left Neurological:. Speech is normal. Skin: Skin is warm and dry - Labs CBC & Chem 7: 03/07/21 05:25 03/07/21 05:25 Assessment and Plan Assessment: 1. Troponin elevation: Probably secondary to non-thrombotic troponin leak/underlying CHF. Troponin trend stabilized. Continue telemetry monitoring. Cardiology consulted 2. Mild acute systolic CHF exacerbation with evidence of bilateral lower extremity edema. Started on IV Lasix. We will continue for another 24 hours. Chest x-ray and BNP not very impressive. Continue to monitor closely. 3. Urinary retention, ruled out, postvoid residual within acceptable range 4. Chronic medical problems: Underlying dementia, probably vascular. History of symptomatic bradycardia status post pacemaker implantation, hypertension, chronic anticoagulation with Eliquis for unclear reason to me Today, I reviewed his medication list and lab work results. Computed tomography scan of the head and cervical spine in the ER with no acute findings. Appreciate cardiology recommendation Discharge planning tomorrow
[2021-03-09 04:52] VITALS: RESP 18
[2021-03-09] MEDS ORDERED: FUROSEMIDE 40 MG TAB PO SCH (09:00)
[2021-03-09] MEDS: APIXABAN 2.5 MG TABLET PO SCH (09:10)
[2021-03-09] MEDS: CLOPIDOGREL 75 MG TAB PO SCH (09:10)
[2021-03-09] MEDS: ASPIRIN 81 MG PO SCH (10:45)
[2021-03-09] MEDS: METOPROLOL SUCCINATE (ER) 25 MG TAB.ER.24H PO SCH (11:11)
[2021-03-09] MEDS: DONEPEZIL 10 MG TAB PO SCH (11:11)
[2021-03-09] MEDS: MEMANTINE 10 MG TAB PO SCH (11:11)
[2021-03-09] MEDS: ATORVASTATIN 40 MG TAB PO SCH (11:11)
[2021-03-09] MEDS: lisinopriL 20 MG TAB PO SCH (11:11)
[2021-03-09] MEDS: CHOLECALCIFEROL 25 MCG (1000 IU) TABLET PO SCH (11:11)
[2021-03-09 11:16] VITALS: BP 106/57; PULSE 70; TEMP 97.4
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
--- NOTE | 2021-03-09 13:29 | P.DS ---
Providers Date of admission: 03/07/21 17:09 Expected date of discharge: 03/09/21 Attending physician: Nenita Carter Consults: 03/06/21 09:09 Consult Physician Urgent Consulting Provider: Guerda Velazquez Consult Reason/Comments: elevated troponin Do you want consulting provider notified?: Yes Primary care physician: Johnny Osei Hospital Course: This is a 85-year-old male with past medical history noted below who presented from a local assisted living facility with worsening confusion. Patient was evaluated in the ER and admitted to the hospital for further management of his medical problems noted below. 1. Troponin elevation: Probably secondary to non-thrombotic troponin leak/underlying CHF. Troponin trend stabilized. Cardiology consulted, recommended switching aspirin to Plavix. Continue medical management otherwise. 2. Mild acute systolic CHF exacerbation with evidence of bilateral lower extremity edema. Started on IV Lasix. Chest x-ray and BNP not very impressive. Switch Lasix to 40 mg daily. 3. Urinary retention, ruled out, postvoid residual within acceptable range 4. Chronic medical problems: Underlying dementia, probably vascular. History of symptomatic bradycardia status post pacemaker implantation, hypertension, chronic atrial fibrillation on anticoagulation with Eliquis Today, I reviewed his medication list and lab work results. Computed tomography scan of the head and cervical spine in the ER with no acute findings. Patient will return to the assisted living facility as requested by family Physical exam: General: The patient is awake and alert, in no distress Eye: there is normal conjunctiva bilaterally. Neck: The neck is supple, there is no JVD. Cardiovascular: Normal S1-S2, no S3-S4, no murmurs. Respiratory: Lungs clear to auscultation bilaterally Gastrointestinal: Abdomen is soft, nontender Musculoskeletal: There is no pedal edema. Neurological:. Speech is normal. Skin: Skin is warm and dry Patient Condition at Discharge: Fair Plan - Discharge Summary New Discharge Prescriptions: New Furosemide [Lasix] 40 mg PO DAILY #30 tab Clopidogrel [Plavix] 75 mg PO DAILY #30 tab Continue Donepezil [Aricept] 10 mg PO DAILY@1100 Memantine [Namenda] 10 mg PO DAILY@1100 Atorvastatin [Lipitor] 40 mg PO DAILY@1100 Cholecalciferol [Vitamin D3 (25 Mcg = 1000 Iu)] 50 mcg PO DAILY@1100 lisinopriL [Zestril] 20 mg PO DAILY@1100 Metoprolol Succinate (ER) [Toprol XL] 25 mg PO DAILY@1100 Apixaban [Eliquis] 2.5 mg PO BID@1100,2300 Discharge Medication List Donepezil [Aricept] 10 mg PO DAILY@1100 10/19/14 [History] Memantine [Namenda] 10 mg PO DAILY@1100 10/19/14 [History] Atorvastatin [Lipitor] 40 mg PO DAILY@109910/27/16 [History] Apixaban [Eliquis] 2.5 mg PO BID@1100,2300 03/06/21 [History] Cholecalciferol [Vitamin D3 (25 Mcg = 1000 Iu)] 50 mcg PO DAILY@109903/06/21 [History] Metoprolol Succinate (ER) [Toprol XL] 25 mg PO DAILY@109903/06/21 [History] lisinopriL [Zestril] 20 mg PO DAILY@109903/06/21 [History] Clopidogrel [Plavix] 75 mg PO DAILY #30 tab 03/09/21 [Rx] Furosemide [Lasix] 40 mg PO DAILY #30 tab 03/09/21 [Rx] Follow up Appointment(s)/Referral(s): Johnny Osei MD [Primary Care Provider] - 1-2 days Sabino Fuentes MD [STAFF PHYSICIAN] - 2 Weeks Discharge Disposition: TRANSFER TO SNF/ECF
== END 2021-03-09 14:57 ==
LOC: EC 06:32 → 3SCARD 09:09 → OBSVTOIN 03-07 17:09 → INTOOBSV 03-07 17:09 → UNDODISIN 03-09 14:57
PROVIDERS: ADMIT Internal Medicine; ATTEND Internal Medicine
DX: R77.8 Other specified abnormalities of plasma proteins (principal); R41.0 Disorientation, unspecified; I48.20 Chronic atrial fibrillation, unspecified; I48.0 Paroxysmal atrial fibrillation; I11.0 Hypertensive heart disease with heart failure; I50.23 Acute on chronic systolic (congestive) heart failure; R33.9 Retention of urine, unspecified; F03.90 Unspecified dementia, unspecified severity, without behavioral disturbance, psychotic disturbance, mood disturbance, and anxiety; R00.1 Bradycardia, unspecified; E78.5 Hyperlipidemia, unspecified; R41.3 Other amnesia; D72.829 Elevated white blood cell count, unspecified; N17.9 Acute kidney failure, unspecified; I08.1 Rheumatic disorders of both mitral and tricuspid valves; R45.1 Restlessness and agitation; I44.30 Unspecified atrioventricular block; S00.81XA Abrasion of other part of head, initial encounter; W19.XXXA Unspecified fall, initial encounter; Z20.822 Contact with and (suspected) exposure to COVID-19; Z91.83 Wandering in diseases classified elsewhere; Z86.718 Personal history of other venous thrombosis and embolism; Z87.891 Personal history of nicotine dependence; Z86.711 Personal history of pulmonary embolism; Z86.73 Personal history of transient ischemic attack (TIA), and cerebral infarction without residual deficits; Z95.0 Presence of cardiac pacemaker; Z79.02 Long term (current) use of antithrombotics/antiplatelets; Z79.899 Other long term (current) drug therapy; Z79.01 Long term (current) use of anticoagulants; Z90.49 Acquired absence of other specified parts of digestive tract; Z98.890 Other specified postprocedural states; Z82.5 Family history of asthma and other chronic lower respiratory diseases
CPT/HCPCS: 96376 ×3; 96365; 96366 ×2; 96375; 99285; 36415; 93005; 93306; 97161; 83880; 80061; 80053; 80048; 82550; 83735; 84484; 85025 ×2; 85610 ×2; 85730 ×2; 87635; 71045; 72125; 70450; G0378 ×4; J1940 ×3; J1644 ×3

== ENCOUNTER → 2021-03-13 | Outpatient (CLI) | payer MEDICARE ==
--- NOTE | 2021-03-14 10:15 | US ---
EXAMINATION TYPE: US kidneys/renal and bladder DATE OF EXAM: 03/13/2021 COMPARISON: NONE CLINICAL HISTORY: R71.8 Other abnormality of red blood cells. Elevated hematocrit. EXAM MEASUREMENTS: Right Kidney: 10.4 x 5.5 x 4.6 cm Left Kidney: 10.4 x 4.1 x 3.8 cm Right Kidney: cysts noted largest measuring 1.5 x 1.3 x 1.3cm Left Kidney: echogenic area noted mid, septated cyst measuring 1.3 x 1.3 x 1.2 Bladder: wnl Technologist glaser 1.1 cm tiny simple appearing thin-walled cyst mid pole of the right kidney and 1.3 cm simple thin-walled cyst lower pole of the right kidney. The urinary bladder is not greatly diste nded. Bilateral ureteral jets are not seen. 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 T here is approximate 7 mm nonshadowing hyperechoic focus left kidney could reflect nonobstructing calc ulus. . IMPRESSION: Renal sizes are satisfactory and within normal limits. Cannot exclude nonobstructing left renal calculus. Consider CT follow-up. No hydronephrosis bilaterally.
== END | disposition home or self-care (01) ==
LOC: RADUSWWP 16:12
PROVIDERS: ATTEND Family Medicine
DX: R71.8 Other abnormality of red blood cells (principal)
CPT/HCPCS: 76770

== ENCOUNTER → 2023-05-30 | Outpatient (CLI) | payer MEDICARE ==
--- NOTE | 2023-05-31 08:28 | CT ---
EXAMINATION TYPE: CT abdomen pelvis wo con CT DLP: 827 mGycm, Automated exposure control for dose reduction was used. DATE OF EXAM: 05/30/2023 10:07 AM COMPARISON: CLINICAL INDICATION:Male, 88 years old with history of R74.01 ELEVATION OF LEVELS OF LIVER TRANSAMINA SE L; Elevation of levels of liver transaminase levels TECHNIQUE: Unenhanced CT of the abdomen and pelvis. Axial sagittal and coronal reformats were created on a separate workstation. A training officer view is not submitted. Contrast used: mL of , (none if empty) Oral contrast used: without Oral Contrast (none if empty) FINDINGS: LOWER CHEST: Mild strandy scarring in the lung bases. Distal ends of pacemaker leads partially seen. Eventration along the right hemidiaphragm. Heart size appears within normal limits. There are heavy c alcifications of the coronary arteries. Calcifications of the aortic valve and descending aorta are s een. ABDOMEN LIVER: Unremarkable unenhanced appearance. GALLBLADDER AND BILE DUCTS: Gallbladder is mildly prominent without evidence for calcified stones or inflammatory changes. Mild/moderate intrahepatic and extrahepatic biliary ductal dilatation. The CBD measures up to 12 mm. This seems to taper distally without clear evidence of obstructive contrast by this exam. PANCREAS: Mild fatty infiltration. No acute finding. Pancreatic duct is nondilated. SPLEEN: Unremarkable. ADRENAL GLANDS: Unremarkable. KIDNEYS AND URETERS: Slight bilateral perinephric stranding. No visible calculi or hydronephrosis. Th ere is a partially exophytic 12 mm hypodense nodule from the posterior right kidney consistent with a cyst. Additional 9 mm hypodense nodule anterolaterally may also be a cyst. Hypodense cortical nodule in the mid left kidney measuring 12 mm, likely a cyst. No evidence of hydroureteronephrosis. PELVIS BLADDER: Partially urine filled with mild diffuse apparent thickening of the wall. REPRODUCTIVE: The prostate appears enlarged measuring 5.2 x 5.7 cm. This indents the base of the blad chelsie. ABDOMEN & PELVIS STOMACH AND BOWEL: Stomach and small bowel are nondistended, no evidence of obstruction. Slightly h eterogeneous gastric contents likely recent meal. Appendix is not identified with certainty, however there is no inflammatory process seen in the RLQ. There is stool and gas seen throughout the colon. No focal acute process is seen. Colonic diverticula are present, without clear evidence of diverticul itis. PERITONEUM/RETROPERITONEUM: No evidence of pneumoperitoneum or free fluid. Zoë mesentery appearan ce in the abdomen without localized adenopathy. VASCULATURE: Moderate to severe atherosclerotic calcifications are present throughout the abdominal a kehinde and its branches. There could potentially be significant stenoses of the proximal renal arteries bilaterally. There is saccular aneurysm of the infrarenal aorta which measures up to 4.1 cm AP and 3 .7 cm transverse. Additional calcifications throughout the iliac arterial trees bilaterally. Right co mmon iliac 1.9 cm, left 1.7 cm. MUSCULOSKELETAL: Moderate diffuse degenerative changes. No clearly ac little traverse bony abnormality. Grade 1 anterolisthesis L5 on S1 associated with bilateral L5 pars defects plus degenerative changes. LYMPH NODES: No gross evidence for lymphadenopathy. SOFT TISSUE/ABDOMINAL WALL: Small fat-containing left inguinal hernia. IMPRESSION: 1. Mild/moderate intrahepatic and extrahepatic biliary ductal prominence without obstructing etiolog y visualized by this exam. Correlate clinically with LFTs. ERCP or MRCP could be obtained as needed f or further evaluation. 2. Significant atherosclerotic calcification of the aorta and branches, including the visualized cor onary arteries. 3. 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 Common iliac arteries are also ectatic. 4. Enlarged prostate gland, as above. Clinical and PSA correlation recommended. 5. Mildly thickened appearance of the urinary bladder wall, likely due to incomplete distention and bladder wall hypertrophy related to relative chronic bladder outlet obstruction, but one could correl ate clinically to exclude cystitis. 6. Zoë mesentery appearance in the abdomen. Differential considerations are broad, but include: me senteric panniculitis, idiopathic, cirrhosis, sequela of adjacent inflammation (including appendiciti s and IBD/Crohn's disease), mesenteric venous thrombosis, rarely neoplasms (such as lymphoma or infil tration by GI adenocarcinoma). 7. Other chronic and likely incidental findings, as described above.
== END | disposition home or self-care (01) ==
LOC: RADCTMAIN 09:30
PROVIDERS: ATTEND Family Medicine
DX: K83.8 Other specified diseases of biliary tract (principal); I70.0 Atherosclerosis of aorta; I71.43 Infrarenal abdominal aortic aneurysm, without rupture; R74.01 Elevation of levels of liver transaminase levels; N40.0 Benign prostatic hyperplasia without lower urinary tract symptoms; N32.89 Other specified disorders of bladder; K58.9 Irritable bowel syndrome, unspecified
CPT/HCPCS: 74176

== ENCOUNTER 2023-06-30 07:38 | Emergency (ER) | payer MEDICARE ==
[2023-06-30] MEDS ORDERED: SODIUM CHLORIDE 0.9% 1,000 ML IV STA (07:45)
[2023-06-30 08:02] LABS: Basophils # (A) 0.1 k/uL (0-0.2); Basophils % (A) 1 %; Eosinophils # (A) 0.3 k/uL (0-0.7); Eosinophils % (A) 2 %; HCT 47.6 % (39.0-53.0); Lymphocytes # (A) 1.5 k/uL (1.0-4.8); Lymphocytes % (A) 10 %; MCH 29.2 pg (25.0-35.0); MCHC 33.6 g/dL (31.0-37.0); MCV 86.9 fL (80.0-100.0); Mean Platelet Volume 8.8; Monocytes # (A) 2.2 k/uL (0-1.0); Monocytes % (A) 14 %; Neutrophils # (A) 10.9 k/uL (1.3-7.7); Neutrophils % (A) 72 %; Platelet Count 182 k/uL (150-450); RBC 5.47 m/uL (4.30-5.90); RDW 14.1 % (11.5-15.5); WBC 15.2 k/uL (3.8-10.6)
[2023-06-30 08:05] VITALS: TEMP 96.7
[2023-06-30 08:15] LABS: ALT 296 U/L (4-49); AST 211 U/L (17-59); African American GFR (CKD) 51 (>60 ml/min/1.73 sqM); Albumin 3.6 g/dL (3.5-5.0); Anion Gap 10 mmol/L; Blood Urea Nitrogen 24 mg/dL (9-20); Calcium 8.9 mg/dL (8.4-10.2); Carbon Dioxide 24 mmol/L (22-30); Chloride 101 mmol/L (98-107); Glucose 101 mg/dL (74-99); Magnesium 2.4 mg/dL (1.6-2.3); Non-African American GFR(CKD) 44 (>60 ml/min/1.73 sqM); Potassium 3.9 mmol/L (3.5-5.1); Sodium 135 mmol/L (137-145); Total Bilirubin 2.3 mg/dL (0.2-1.3); Total Protein 6.3 g/dL (6.3-8.2)
[2023-06-30 08:17] LABS: Appearance,Urine Clear (Clear); Bilirubin,Urine Negative (Negative); Blood,Urine Negative (Negative); Color,Urine Yellow; Glucose,Urine (UA) Negative (Negative); Ketones,Urine Negative (Negative); Leukocyte Esterase,Urine Negative (Negative); Nitrite,Urine Negative (Negative); PH, Urine 5.5 (5.0-8.0); Protein,Urine Trace (Negative); Specific Gravity,Urine 1.014 (1.001-1.035)
--- NOTE | 2023-06-30 08:32 | ED ---
General Adult HPI - General Stated complaint: Fall Time Seen by Provider: 06/30/23 07:39 Source: patient, family, RN notes reviewed Mode of arrival: EMS Limitations: no limitations - History of Present Illness Initial comments: 88-year-old male presents emergency Department with chief complaint of unwitnessed fall. Daughter states that she checks on him daily patient lives at [facility]. He ate reportedly had a fall he is on Eliquis for atrial fibrillation. Patient does have dementia which has been worsening he's had increasing confusion and is concerned about possible UTI. Patient also has been worked up by Lauri Anderson for possible pancreatic cancer as she's had significant transaminitis. Patient is a DO NOT RESUSCITATE patient. Patient denies any nausea vomiting diarrhea constipation denies any extremity injuries. No lacerations. - Related Data Home Medications Medication Instructions Recorded Confirmed Donepezil [Aricept] 10 mg PO DAILY@109910/19/14 03/06/21 Memantine [Namenda] 10 mg PO DAILY@109910/19/14 03/06/21 Atorvastatin [Lipitor] 40 mg PO DAILY@109910/27/16 03/06/21 Apixaban [Eliquis] 2.5 mg PO BID@1100,2300 03/06/21 03/06/21 Cholecalciferol [Vitamin D3 (25 50 mcg PO DAILY@109903/06/21 03/06/21 Mcg = 1000 Iu)] Metoprolol Succinate (ER) [Toprol 25 mg PO DAILY@109903/06/21 03/06/21 XL] lisinopriL [Zestril] 20 mg PO DAILY@109903/06/21 03/06/21 Previous Rx's Medication Instructions Recorded Clopidogrel [Plavix] 75 mg PO DAILY #30 tab 03/09/21 Furosemide [Lasix] 40 mg PO DAILY #30 tab 03/09/21 Allergies Allergy/AdvReac Type Severity Reaction Status Date / Time No Known Allergies Allergy Verified 03/06/21 09:13 Review of Systems ROS Statement: Those systems with pertinent positive or pertinent negative responses have been documented in the HPI. ROS Other: All systems not noted in ROS Statement are negative. Past Medical History Past Medical History: Atrial Fibrillation, CVA/TIA, Dementia, Deep Vein Thrombosis (DVT), Hyperlipidemia, Hypertension, Memory Impairment, Myocardial Infarction (WA), Vascular Disorder Additional Past Medical History / Comment(s): DVT >30 yrs. 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 per daughter Past Psychological History: No Psychological Hx Reported Smoking Status: Former smoker Past Alcohol Use History: None Reported Past Drug Use History: None Reported - Past Family History Sister(s) Family Medical History: Asthma General Exam Limitations: no limitations General appearance: alert, in no apparent distress Head exam: Present: atraumatic, normocephalic, normal inspection Eye exam: Present: normal appearance, PERRL, EOMI. Absent: scleral icterus, conjunctival injection, periorbital swelling ENT exam: Present: normal exam, normal oropharynx, mucous membranes moist Neck exam: Present: normal inspection, full ROM. Absent: tenderness, meningismus, lymphadenopathy Respiratory exam: Present: normal lung sounds bilaterally. Absent: respiratory distress, wheezes, rales, rhonchi, stridor Cardiovascular Exam: Present: regular rate, normal rhythm, normal heart sounds. Absent: systolic murmur, diastolic murmur, rubs, gallop, clicks GI/Abdominal exam: Present: soft, normal bowel sounds. Absent: distended, tenderness, guarding, rebound, rigid Extremities exam: Present: full ROM. Absent: tenderness Back exam: Present: full ROM. Absent: tenderness Neurological exam: Present: alert, CN II-XII intact, reflexes normal. Absent: oriented X3, motor sensory deficit Skin exam: Present: warm, dry, intact, normal color. Absent: rash Course Vital Signs 06/30/23 06/30/23 06/30/23 07:43 07:48 10:01 Temperature 96.7 F L Pulse Rate 75 57 L 60 Respiratory 16 20 16 Rate Blood Pressure 163/74 163/74 140/60 O2 Sat by Pulse 94 L 94 L 98 Oximetry EKG Findings - EKG Comments: EKG Findings:: EKG performed at 17:55 ventricular paced rate of 72 QRS 168 QT/QTC 471/495 - EKG Results: EKG: interpreted by YEMI Medical Decision Making - Medical Decision Making Was pt. sent in by a medical professional or institution (, SEGUNDO, GUN REPAIR CLERK, urgent care, hospital, or correction...) When possible be specific @ -No Did you speak to anyone other than the patient for history (EMS, parent, family, police, friend...)? What history was obtained from this source @ -[Daughter providing all past medical history Did you review nursing and triage notes (agree or disagree)? Why? @ -I reviewed and agree with nursing and triage notes Were old charts reviewed (outside hosp., previous admission, EMS record, old EKG, old radiological studies, urgent care reports/EKG's, correction records)? Report findings @ -No old charts were reviewed Differential Diagnosis (chest pain, altered mental status, abdominal pain women, abdominal pain men, vaginal bleeding, weakness, fever, dyspnea, syncope, headache, dizziness, GI bleed, back pain, seizure, CVA, palpatations, mental health, musculoskeletal)? @ -nDifferential Weakness: Hypoglycemia, shock, sepsis, hyponatremia, anemia, infection, [place], ETOH, adverse medicine reaction, overdose, stroke, this is not meant to be an all-inclusive list.le EKG interpreted by me (3pts min.). @ -As above X-rays interpreted by me (1pt min.). @ -Chest x-ray shows no acute cardio pulmonary process CT interpreted by me (1pt min.). @ -[CT brain shows no acute intracranial hemorrhage mass effect or acute abnormality U/S interpreted by me (1pt. min.). @ -None done What testing was considered but not performed or refused? (CT, X-rays, U/S, labs)? Why? @ -None What meds were considered but not given or refused? Why? @ -None Did you discuss the management of the patient with other professionals (professionals i.e. SEGUNDO Mahajan, GUN REPAIR CLERK, lab, RT, psych nurse, social work faculty member, violin teacher, teacher, founder and chief executive officer, senior case manager)? Give summary @ -No Was smoking cessation discussed for >3mins.? @ -No Was critical care preformed (if so, how long)? @ -No Were there social determinants of health that impacted care today? How? (Homelessness, low income, unemployed, alcoholism, drug addiction, transportation, low edu. Level, literacy, decrease access to med. care, [facility], rehab)? @ -No Was there de-escalation of care discussed even if they declined (Discuss DNR or withdrawal of care, Hospice)? DNR status @ -No What co-morbidities impacted this encounter? (DM, HTN, Smoking, COPD, CAD, Cancer, CVA, ARF, Chemo, Hep., AIDS, mental health diagnosis, sleep apnea, morbid obesity)? @ -Dementia Was patient admitted / discharged? Hospital course, mention meds given and route, prescriptions, significant lab abnormalities, going to OR and other pertinent info. @ -Discharge patient to for complete lab CT and x-ray with no acute abnormality [facility]] Undiagnosed new problem with uncertain prognoss?@ -[No] Drug Therapy requiring intensive monitoring for toxicity (Heparin, Nitro, Insulin, Cardize)?@ -[No] Were any procedures lal?@ -[No] Diagnosis/symptm? @ - fall, dementia] Acute, or Chronic, or Acute on Chronc? @ - acute plicated (without systemic symptoms) or Complicated (systemic symptoms)? @ Uncomplicated Side effects of treatmet?@ -[No] Exacerbation, Progression, or Severe Exacerbatin?@ -[No] Poses a threat to life or bodily function? How? (Chest pain, [place], [place], pneumonia, PE, COPD, DKA, ARF, appy, cholecystitis, CVA, Diverticulitis, Homicidal, Suicidal, threat to staff... and all critical care ps)@ -[No] - Lab Data Result diagrams: 06/30/23 07:45 06/30/23 07:45 Lab Results 06/30/23 06/30/23 06/30/23 Range/Units 07:45 07:45 07:45 WBC 15.2 H (3.8-10.6) k/uL RBC 5.47 (4.30-5.90) m/uL Hgb 16.0 (13.0-17.5) gm/dL Hct 47.6 (39.0-53.0) % MCV 86.9 (80.0-100.0) fL MCH 29.2 (25.0-35.0) pg MCHC 33.6 (31.0-37.0) g/dL RDW 14.1 (11.5-15.5) % Plt Count 182 (150-450) k/uL MPV 8.8 Neutrophils % 72 % Lymphocytes % 10 % Monocytes % 14 % Eosinophils % 2 % Basophils % 1 % Neutrophils # 10.9 H (1.3-7.7) k/uL Lymphocytes # 1.5 (1.0-4.8) k/uL Monocytes # 2.2 H (0-1.0) k/uL Eosinophils # 0.3 (0-0.7) k/uL Basophils # 0.1 (0-0.2) k/uL Sodium 135 L (137-145) mmol/L Potassium 3.9 (3.5-5.1) mmol/L Chloride 101 (98-107) mmol/L Carbon Dioxide 24 (22-30) mmol/L Anion Gap 10 mmol/L BUN 24 H (9-20) mg/dL Creatinine 1.42 H (0.66-1.25) mg/dL Est GFR (CKD-EPI)AfAm 51 (>60 ml/min/1.73 sqM) Est GFR (CKD-EPI)NonAf 44 (>60 ml/min/1.73 sqM) Glucose 101 H (74-99) mg/dL Plasma Lactic Acid Tulio 1.5 (0.7-2.0) mmol/L Calcium 8.9 (8.4-10.2) mg/dL Magnesium 2.4 H (1.6-2.3) mg/dL Total Bilirubin 2.3 H (0.2-1.3) mg/dL AST 211 H (17-59) U/L ALT 296 H (4-49) U/L Alkaline Phosphatase 1057 H (38-126) U/L Troponin I (0.000-0.034) ng/mL Total Protein 6.3 (6.3-8.2) g/dL Albumin 3.6 (3.5-5.0) g/dL Urine Color Urine Appearance (Clear) Urine pH (5.0-8.0) Ur Specific [place] (1.001-1.035) Urine Protein (Negative) Urine Glucose (UA) (Negative) Urine Ketones (Negative) Urine Blood (Negative) Urine Nitrite (Negative) Urine Bilirubin (Negative) Urine Urobilinogen (<2.0) mg/dL Ur Leukocyte Esterase (Negative) 06/30/23 06/30/23 Range/Units 07:45 07:49 WBC (3.8-10.6) k/uL RBC (4.30-5.90) m/uL Hgb (13.0-17.5) gm/dL Hct (39.0-53.0) % MCV (80.0-100.0) fL MCH (25.0-35.0) pg MCHC (31.0-37.0) g/dL RDW (11.5-15.5) % Plt Count (150-450) k/uL MPV Neutrophils % % Lymphocytes % % Monocytes % % Eosinophils % % Basophils % % Neutrophils # (1.3-7.7) k/uL Lymphocytes # (1.0-4.8) k/uL Monocytes # (0-1.0) k/uL Eosinophils # (0-0.7) k/uL Basophils # (0-0.2) k/uL Sodium (137-145) mmol/L Potassium (3.5-5.1) mmol/L Chloride (98-107) mmol/L Carbon Dioxide (22-30) mmol/L Anion Gap mmol/L BUN (9-20) mg/dL Creatinine (0.66-1.25) mg/dL Est GFR (CKD-EPI)AfAm (>60 ml/min/1.73 sqM) Est GFR (CKD-EPI)NonAf (>60 ml/min/1.73 sqM) Glucose (74-99) mg/dL Plasma Lactic Acid Tulio (0.7-2.0) mmol/L Calcium (8.4-10.2) mg/dL Magnesium (1.6-2.3) mg/dL Total Bilirubin (0.2-1.3) mg/dL AST (17-59) U/L ALT (4-49) U/L Alkaline Phosphatase (38-126) U/L Troponin I 0.034 (0.000-0.034) ng/mL Total Protein (6.3-8.2) g/dL Albumin (3.5-5.0) g/dL Urine Color Yellow Urine Appearance Clear (Clear) Urine pH 5.5 (5.0-8.0) Ur Specific [place] 1.014 (1.001-1.035) Urine Protein Trace H (Negative) Urine Glucose (UA) Negative (Negative) Urine Ketones Negative (Negative) Urine Blood Negative (Negative) Urine Nitrite Negative (Negative) Urine Bilirubin Negative (Negative) Urine Urobilinogen 3.0 (<2.0) mg/dL Ur Leukocyte Esterase Negative (Negative) Disposition Clinical Impression: Fall, Dementia, Transaminitis Disposition: HOME SELF-CARE Condition: Stable Additional Instructions: Please return to the Emergency Department if symptoms worsen or any other concerns. Is patient prescribed a controlled substance at d/c from ED?: No Referrals: Johnny Osei MD [Primary Care Provider] - 1-2 days Time of Disposition: 09:47
--- NOTE | 2023-06-30 08:52 | XR ---
EXAMINATION TYPE: XR chest 2V DATE OF EXAM: 06/30/2023 COMPARISON: Prior chest x-ray March 06, 2021 HISTORY: Weakness TECHNIQUE: Frontal and lateral views of the chest are obtained. FINDINGS: Improved inspiration on current study. There is no suspicious new focal air space opacity, pleural effusion, or pneumothorax seen. The cardiac silhouette size is stable and within normal he its. Dual-lead pacemaker is redemonstrated. Multilevel spurring in thoracic spine is redemonstrated. IMPRESSION: No acute cardiopulmonary process.
--- NOTE | 2023-06-30 08:57 | CT ---
EXAMINATION TYPE: CT brain cspine wo con DATE OF EXAM: 06/30/2023 COMPARISON: Prior trauma CT March 06, 2021 HISTORY: Fall, pain CT DLP: 1374.9 mGycm. Automated Exposure Control for Dose Reduction was Utilized. TECHNIQUE: CT scan of the head and cervical spine are performed without contrast. FINDINGS: There is no acute intracranial hemorrhage or midline shift identified. Moderate ventricul ar and sulcal prominence redemonstrated. Moderate low attenuation the periventricular white matter ag ain seen. The calvarium is intact. Bilateral aphakia is redemonstrated. The visualized sinuses are cl ear. Cervical spine is visualized in its entirety from C1 through upper thoracic levels and demonstrates s table and satisfactory alignment without evidence of acute fracture or dislocation. Prevertebral sof t tissue appears within normal limits. Advanced atlantodental degenerative narrowing is redemonstrate d. Vertebral body heights are maintained. Moderate disc space narrowing C5-C6 and C6-C7 levels is red emonstrated. Axial images redemonstrate multilevel uncovertebral facet degenerative changes bilatera lly. Spinal canal is grossly preserved. The thyroid gland remains within normal limits. Lung apices s how no pneumothorax. IMPRESSION: 1. There is no acute fracture or dislocation evident in the cervical spine. 2. No acute intracranial hemorrhage or midline shift is seen. No significant change from prior.
[2023-06-30 09:13] LABS: Alkaline Phosphatase 1057 U/L (38-126)
[2023-06-30 10:07] VITALS: BP 140/60; PULSE 60; RESP 16
== END 2023-06-30 10:02 | disposition home or self-care (01) ==
LOC: EC 07:38
DX: F03.90 Unspecified dementia, unspecified severity, without behavioral disturbance, psychotic disturbance, mood disturbance, and anxiety (principal); R74.01 Elevation of levels of liver transaminase levels; I48.91 Unspecified atrial fibrillation; E78.5 Hyperlipidemia, unspecified; I25.2 Old myocardial infarction; I10 Essential (primary) hypertension; Z87.891 Personal history of nicotine dependence; Z86.73 Personal history of transient ischemic attack (TIA), and cerebral infarction without residual deficits; Z79.01 Long term (current) use of anticoagulants; Z79.899 Other long term (current) drug therapy; W19.XXXA Unspecified fall, initial encounter
CPT/HCPCS: 36415; 70450; 71046; 72125; 80053; 81003; 83605; 83735; 84484; 85025; 93005; 96360; 96361; 99285